=== PATIENT | female | born 1960 | race Asian ===

== ENCOUNTER 2022-01-14 15:26 | Inpatient (IN) ==
[2022-01-14 17:38] LABS: Hematocrit 44 % (35-47); Hemoglobin 14.2 g/dL (12.0-16.0); Mean Corpuscular HGB Conc 32 g/dL (31-36); Mean Corpuscular Hemoglobin 26 pg (27-31); Mean Corpuscular Volume 82 fL (80-97); Mean Platelet Volume 8.1 fL (7.4-10.4); Platelet Count 330 10^3/uL (150-450); Red Blood Count 5.42 10^6 /uL (3.70-4.87); Red Cell Distribution Width 18 % (10-15); White Blood Count 19.4 10^3/uL (3.5-10.8)
[2022-01-14 17:43] LABS: ABS Basophils 0.1 10^3/ul (0-0.2); ABS Lymphocytes 0.7 10^3/ul (1.0-4.8); ABS Monocytes 0.4 10^3/ul (0-0.8); ABS Neutrophils 18.2 10^3/ul (1.5-7.7); Lymphocyte % 3.5 %; Nucleated Red Blood Cells % 0.2
[2022-01-14] MEDS ORDERED: Magnesium Hydroxide LIQ 30 ML UDC PO PRN (18:08)
[2022-01-14 18:16] LABS: Albumin 3.4 g/dL (3.2-5.2); Albumin/Globulin Ratio 1.1 (1-3); Calcium 8.6 mg/dL (8.6-10.3); Potassium 4.7 mmol/L (3.5-5.0); Total Bilirubin 0.5 mg/dL (0.2-1.0); Total Protein 6.4 g/dL (6.4-8.9); eGFR CKD-EPI 98.7 (>60)
[2022-01-14] MEDS: Enoxaparin 40 MG/0.4 ML SYR SUBCUT SCH (18:40)
[2022-01-14 21:01] LABS: Vitamin D Total 25(OH) 17.5 ng/mL (20-50)
[2022-01-14] MEDS: Magnesium Hydroxide LIQ 30 ML UDC PO SCH (22:19)
[2022-01-14] MEDS ORDERED: Iohexol 350 (CONTRAST) 500 ML MDV IV ONE (22:31)
[2022-01-14] MEDS ORDERED: NS 0.9% 1000 ml BAG 1,000 ML IV SCH (23:45)
[2022-01-15] MEDS: Magnesium Hydroxide LIQ 30 ML UDC PO SCH ×2 (10:08→21:28)
[2022-01-15] MEDS: Calcium/Vitamin D TAB 250/125 TAB PO SCH (10:20)
[2022-01-15] MEDS: Polyethylene Glycol 3350 17 GM PACKET PO PRN (10:31)
[2022-01-15] MEDS: Enoxaparin 40 MG/0.4 ML SYR SUBCUT SCH (18:19)
[2022-01-15] MEDS: Senna TAB 8.6 mg TAB PO PRN (21:10)
[2022-01-15] MEDS: CMCS: Meloxicam 7.5 mg TAB (NF) PO PRN (21:10)
[2022-01-16 05:39] LABS: Hematocrit 44 % (35-47); Mean Corpuscular HGB Conc 32 g/dL (31-36); Mean Corpuscular Hemoglobin 27 pg (27-31); Mean Corpuscular Volume 84 fL (80-97); Mean Platelet Volume 8.3 fL (7.4-10.4); Platelet Count 259 10^3/uL (150-450); Red Blood Count 5.28 10^6 /uL (3.70-4.87); Red Cell Distribution Width 18 % (10-15); White Blood Count 14.3 10^3/uL (3.5-10.8)
[2022-01-16 05:57] LABS: Calcium 8.6 mg/dL (8.6-10.3); Magnesium 2.2 mg/dL (1.9-2.7); Potassium 4.5 mmol/L (3.5-5.0); eGFR CKD-EPI 100.9 (>60)
[2022-01-16 06:33] LABS: ABS Eosinophils 0.1 10^3/ul (0-0.6); ABS Monocytes 0.6 10^3/ul (0-0.8); ABS Neutrophils 12.6 10^3/ul (1.5-7.7); Eosinophil % 0.9 %; Lymphocyte % 6.9 %; Nucleated Red Blood Cells % 0.1
[2022-01-16] MEDS ORDERED: Sodium Phosphate ADULT ENEMA 133 ML BTL PR PRN (09:17)
[2022-01-16] MEDS: ETANERCEPT 25 MG SUBCUT SCH (10:04)
[2022-01-16] MEDS: Magnesium Hydroxide LIQ 30 ML UDC PO SCH ×2 (10:07→21:28)
[2022-01-16] MEDS: Calcium/Vitamin D TAB 250/125 TAB PO SCH (10:10)
[2022-01-16] MEDS: Lactulose 30 ml UDC PO SCH ×3 (10:15→21:28)
[2022-01-16] MEDS: Enoxaparin 40 MG/0.4 ML SYR SUBCUT SCH (18:28)
[2022-01-16] MEDS: CMCS: Meloxicam 7.5 mg TAB (NF) PO PRN (21:57)
[2022-01-17 06:42] LABS: Hematocrit 41 % (35-47); Hemoglobin 13.7 g/dL (12.0-16.0); Mean Corpuscular HGB Conc 33 g/dL (31-36); Mean Corpuscular Hemoglobin 28 pg (27-31); Mean Corpuscular Volume 83 fL (80-97); Mean Platelet Volume 8.1 fL (7.4-10.4); Platelet Count 293 10^3/uL (150-450); Red Blood Count 4.97 10^6 /uL (3.70-4.87); Red Cell Distribution Width 18 % (10-15)
[2022-01-17 07:02] LABS: Calcium 8.7 mg/dL (8.6-10.3); Magnesium 2.2 mg/dL (1.9-2.7); Potassium 4.4 mmol/L (3.5-5.0)
[2022-01-17] MEDS: Lactulose 30 ml UDC PO SCH ×3 (09:02→21:49)
[2022-01-17] MEDS: Magnesium Hydroxide LIQ 30 ML UDC PO SCH ×2 (09:02→21:50)
[2022-01-17] MEDS: Calcium/Vitamin D TAB 250/125 TAB PO SCH (09:04)
[2022-01-17 09:20] LABS: ABS Eosinophils 0.1 10^3/ul (0-0.6); ABS Lymphocytes 1.1 10^3/ul (1.0-4.8); ABS Monocytes 0.7 10^3/ul (0-0.8); Eosinophil % 0.9 %; Lymphocyte % 7.6 %
[2022-01-17] MEDS: Enoxaparin 40 MG/0.4 ML SYR SUBCUT SCH (20:07)
[2022-01-17] MEDS: CMCS: Meloxicam 7.5 mg TAB (NF) PO PRN (21:56)
[2022-01-18] MEDS: Lactulose 30 ml UDC PO SCH (07:23)
[2022-01-18] MEDS: Magnesium Hydroxide LIQ 30 ML UDC PO SCH ×2 (07:23→20:56)
[2022-01-18] MEDS: Calcium/Vitamin D TAB 250/125 TAB PO SCH (09:00)
[2022-01-18] MEDS: ETANERCEPT 25 MG SUBCUT SCH (10:12)
[2022-01-18] MEDS: Enoxaparin 40 MG/0.4 ML SYR SUBCUT SCH (17:44)
[2022-01-18] MEDS: CMCS: Meloxicam 7.5 mg TAB (NF) PO PRN (21:21)
[2022-01-19 05:48] LABS: Hematocrit 41 % (35-47); Mean Corpuscular HGB Conc 32 g/dL (31-36); Mean Corpuscular Hemoglobin 26 pg (27-31); Mean Corpuscular Volume 83 fL (80-97); Mean Platelet Volume 8.2 fL (7.4-10.4); Platelet Count 324 10^3/uL (150-450); Red Blood Count 4.93 10^6 /uL (3.70-4.87); Red Cell Distribution Width 17 % (10-15)
[2022-01-19 06:18] LABS: Calcium 8.9 mg/dL (8.6-10.3); Magnesium 1.9 mg/dL (1.9-2.7); eGFR CKD-EPI 102.9 (>60)
[2022-01-19 07:21] LABS: ABS Eosinophils 0.1 10^3/ul (0-0.6); ABS Monocytes 0.8 10^3/ul (0-0.8); ABS Neutrophils 12.1 10^3/ul (1.5-7.7); Eosinophil % 0.6 %; Lymphocyte % 7.2 %; Nucleated Red Blood Cells % 0.1
[2022-01-19] MEDS: Magnesium Hydroxide LIQ 30 ML UDC PO SCH ×3 (08:04→22:02)
[2022-01-19] MEDS: Calcium/Vitamin D TAB 250/125 TAB PO SCH (08:06)
[2022-01-19] MEDS: Enoxaparin 40 MG/0.4 ML SYR SUBCUT SCH (17:39)
[2022-01-19] MEDS: CMCS: Meloxicam 7.5 mg TAB (NF) PO PRN (22:33)
[2022-01-20 05:38] LABS: Hematocrit 41 % (35-47); Hemoglobin 13.3 g/dL (12.0-16.0); Mean Corpuscular HGB Conc 32 g/dL (31-36); Mean Corpuscular Hemoglobin 27 pg (27-31); Mean Corpuscular Volume 84 fL (80-97); Mean Platelet Volume 7.9 fL (7.4-10.4); Platelet Count 294 10^3/uL (150-450); Red Blood Count 4.89 10^6 /uL (3.70-4.87); Red Cell Distribution Width 18 % (10-15); White Blood Count 10.2 10^3/uL (3.5-10.8)
[2022-01-20 05:45] LABS: Calcium 8.8 mg/dL (8.6-10.3); Potassium 4.4 mmol/L (3.5-5.0)
[2022-01-20 05:50] LABS: eGFR CKD-EPI 101.3 (>60)
[2022-01-20 05:55] LABS: ABS Eosinophils 0.1 10^3/ul (0-0.6); ABS Lymphocytes 1.1 10^3/ul (1.0-4.8); ABS Monocytes 0.8 10^3/ul (0-0.8); ABS Neutrophils 8.2 10^3/ul (1.5-7.7); Eosinophil % 0.9 %; Lymphocyte % 10.9 %
[2022-01-20] MEDS: Calcium/Vitamin D TAB 250/125 TAB PO SCH (08:29)
[2022-01-20] MEDS: Polyethylene Glycol 3350 17 GM PACKET PO PRN (08:29)
[2022-01-20] MEDS: Magnesium Hydroxide LIQ 30 ML UDC PO SCH ×2 (08:39→20:12)
[2022-01-20] MEDS: Enoxaparin 40 MG/0.4 ML SYR SUBCUT SCH (18:18)
[2022-01-20] MEDS: Senna TAB 8.6 mg TAB PO PRN (20:12)
[2022-01-21] MEDS: CMCS: Meloxicam 7.5 mg TAB (NF) PO PRN (04:03)
[2022-01-21] MEDS: Magnesium Hydroxide LIQ 30 ML UDC PO SCH ×2 (08:51→21:19)
[2022-01-21] MEDS: Calcium/Vitamin D TAB 250/125 TAB PO SCH (08:51)
[2022-01-21] MEDS: ETANERCEPT 25 MG SUBCUT SCH (12:13)
[2022-01-21] MEDS: Enoxaparin 40 MG/0.4 ML SYR SUBCUT SCH (18:37)
[2022-01-22] MEDS: Magnesium Hydroxide LIQ 30 ML UDC PO SCH ×2 (08:59→09:02)
[2022-01-22] MEDS: Calcium/Vitamin D TAB 250/125 TAB PO SCH (09:00)
[2022-01-22 11:42] LABS: Rapid COVID-19 Molecular Undetected (Undetected)
[2022-01-22 11:47] VITALS: BP 122/72
== END 2022-01-22 14:00 | DRG 543 ==
LOC: ED 15:26 → SUATTDRO 18:02 → EDHOLD 18:02 → SSU 19:28
PROVIDERS: ADMIT Student in an Organized Health Care Education/Training Program; ATTEND Student in an Organized Health Care Education/Training Program